=== PATIENT | female | born 1990 | race Asian ===

== ENCOUNTER 2021-10-29 15:34 | Inpatient (IN) ==
[2021-10-29 20:00] LABS: Urine Benzodiazepine Screen None Detected (None Detect); Urine Cannabinoids Screen None Detected (None Detect); Urine Opiates Screen None Detected (None Detect)
[2021-10-30] MEDS ORDERED: Buffered Lidocaine 1% SYRIN 1 ml INTRADERM ONE (09:43)
[2021-10-30] MEDS ORDERED: Lactated Ringers 1000 ml BAG 1,000 ML IV ONE ×2 (09:43→10:51)
[2021-10-30 10:11] LABS: ABS Lymphocytes 0.6 10^3/ul (1.0-4.8); ABS Monocytes 0.3 10^3/ul (0-0.8); ABS Neutrophils 5.7 10^3/ul (1.5-7.7); Hematocrit 34 % (35-47); Hemoglobin 11.4 g/dL (12.0-16.0); Lymphocyte % 8.6 %; Mean Corpuscular HGB Conc 33 g/dL (31-36); Mean Corpuscular Hemoglobin 31 pg (27-31); Mean Corpuscular Volume 94 fL (80-97); Mean Platelet Volume 8.6 fL (7.4-10.4); Platelet Count 168 10^3/uL (150-450); Red Blood Count 3.65 10^6 /uL (3.70-4.87); Red Cell Distribution Width 14 % (10-15); White Blood Count 6.5 10^3/uL (3.5-10.8)
[2021-10-30] MEDS ORDERED: Oxytocin in LR 20,000 MILLI.UNIT/1,000 ML BAG IV ONE (10:28)
[2021-10-30] MEDS ORDERED: OBEPIDURAL (200 ML) 200 ML EPIDURAL ONE (10:29)
[2021-10-30] MEDS ORDERED: Lidocaine 1% w EPI 1:200,000 SDV 30 ML VIAL ONE (10:39)
[2021-10-30] MEDS ORDERED: Lactated Ringers 1000 ml BAG 500 ML IV PRN ×2 (10:51)
[2021-10-30] MEDS ORDERED: Phenylephrine 40 mcg/mL 10mL (400mcg) SYRINGE IV PUSH PRN ×2 (10:51)
[2021-10-30] MEDS ORDERED: Sodium Citrate/Citric Acid LIQ 15 ML UDC PO PRN (10:51)
[2021-10-30] MEDS ORDERED: Lactated Ringers 1000 ml BAG 1,000 ML IV SCH (11:00)
[2021-10-30] MEDS ORDERED: OBEPIDURAL (200 ML) 200 ML EPIDURAL SCH (11:00)
[2021-10-30 12:40] LABS: Urine Appearance Clear; Urine Bilirubin Negative (Negative); Urine Color Colorless; Urine Glucose Negative (Negative); Urine Ketones Negative (Negative); Urine Nitrite Negative (Negative); Urine Protein Negative (Negative); Urine Specific Gravity <=1.005 (1.005-1.030); Urine Urobilinogen 0.2 (Negative) (Negative); Urine pH 6.5 (5.0-9.0)
[2021-10-30 12:54] LABS: Urine Bacteria Absent (Absent); Urine Red Blood Cell Trace(0-2/hpf) (Absent); Urine White Blood Cell Absent (Absent)
[2021-10-30] MEDS: Lactated Ringers 1000 ml BAG 1,000 ML IV SCH ×2 (13:16→18:39)
[2021-10-30] MEDS ORDERED: Albuterol HFA INHALER 8 gm MDI INH PRN (20:12)
[2021-10-31] MEDS ORDERED: Lidocaine 1% VIAL 10 MG/ML VIAL ONE (01:27)
[2021-10-31] MEDS ORDERED: Oxytocin in LR 20,000 MILLI.UNIT/1,000 ML BAG IV SCH (02:00)
[2021-10-31] MEDS ORDERED: Lactated Ringers 1000 ml BAG 1,000 ML IV SCH (02:00)
[2021-10-31] MEDS ORDERED: ceFAZolin VIAL 2 GM in NS 0.9% 100 ml BAG 100 ML IVPB ONE (02:14)
[2021-10-31] MEDS: Witch Hazel PAD JAR TOPICAL PRN (02:56)
[2021-10-31] MEDS: Dibucaine 1% OINT 28.35 GM TUBE PR PRN ×2 (02:56→23:37)
[2021-10-31] MEDS ORDERED: ceFAZolin 2 GM PREMIX 2 GM/50 ML BAG IVPB ONE (04:00)
[2021-10-31] MEDS: Benzocaine/Menthol LOZ MT PRN ×2 (14:46→23:37)
[2021-11-01] MEDS: Benzocaine/Menthol LOZ MT PRN (05:47)
[2021-11-01 06:22] LABS: ABS Lymphocytes 1.8 10^3/ul (1.0-4.8); ABS Monocytes 0.5 10^3/ul (0-0.8); ABS Neutrophils 8.5 10^3/ul (1.5-7.7); Eosinophil % 0.3 %; Hematocrit 31 % (35-47); Hemoglobin 10.3 g/dL (12.0-16.0); Lymphocyte % 16.8 %; Mean Corpuscular HGB Conc 33 g/dL (31-36); Mean Corpuscular Hemoglobin 31 pg (27-31); Mean Corpuscular Volume 94 fL (80-97); Mean Platelet Volume 8.4 fL (7.4-10.4); Platelet Count 168 10^3/uL (150-450); Red Blood Count 3.28 10^6 /uL (3.70-4.87); Red Cell Distribution Width 14 % (10-15); White Blood Count 10.8 10^3/uL (3.5-10.8)
[2021-11-01] MEDS: Dibucaine 1% OINT 28.35 GM TUBE PR PRN (22:02)
[2021-11-02 08:14] VITALS: BP 101/65
[2021-11-02] MEDS: Dibucaine 1% OINT 28.35 GM TUBE PR PRN (09:06)
[2021-11-02] MEDS: Witch Hazel PAD JAR TOPICAL PRN (09:06)
== END 2021-11-02 14:34 | disposition home or self-care (01) | DRG 768 ==
LOC: MCHOBOUT 15:34 → MCHOB 19:08
PROVIDERS: ADMIT Midwife; ATTEND Midwife